=== PATIENT | female | born 1930 | race Caucasian/White ===

== ENCOUNTER 2020-05-09 09:58 | Inpatient (IN) | payer MEDICARE, OTHER ==
[~2020-05-09] VITALS: Ht 152.4 cm; Wt 51.3 kg
[2020-05-09 10:34] LABS: BASOPHILS % (AUTO) 0.8 % (0.0-2.0); EOSINOPHILS # (AUTO) 0.2 K/uL (0.0-0.7); EOSINOPHILS % (AUTO) 3.4 % (0.0-7.0); HEMATOCRIT 41.8 % (31.2-41.9); LYMPHOCYTES # (AUTO) 1.3 K/uL (20.0-40.0); LYMPHOCYTES % (AUTO) 24.5 % (20.5-51.5); MEAN CORPUSCULAR HGB CONC 33 g/dL (32.3-35.6); MONOCYTES # (AUTO) 0.6 K/uL (2.0-10.0); MONOCYTES % (AUTO) 10.5 % (0.0-11.0); NEUTROPHILS # (AUTO) 3.3 K/uL (1.8-8.9); NEUTROPHILS % (AUTO) 60.8 % (38.5-71.5); PLATELET COUNT (AUTO) 190 K/uL (179-408); RED BLOOD CELL COUNT(AUTO) 4.98 MIL/uL (3.63-4.92); WHITE BLOOD COUNT (AUTO) 5.4 K/uL (3.8-11.8)
[2020-05-09 10:47] LABS: BILIRUBIN,DIRECT 0.2 mg/dL (0.0-0.2); POTASSIUM 3.5 mmol/L (3.5-5.1); TOTAL PROTEIN, SERUM 7.1 g/dL (6.4-8.2)
--- NOTE | 2020-05-09 11:39 | NUR ---
Dr. Rowe medically cleared pt. called Nisreen Tristan for psych eval. left a message.
--- NOTE | 2020-05-09 13:38 | NUR ---
destinee heath again and left a message.
--- NOTE | 2020-05-09 15:10 | NUR ---
JAMMIE AT BEDSIDE FOR PSYCH EVAL.
--- NOTE | 2020-05-09 15:50 | NUR ---
HOSPITAL SANDWICH PROVIDED PER REQUEST.
--- NOTE | 2020-05-09 16:35 | NUR ---
TRANSFERED PT TO MHU IN STABLE CNDITION. PT REMAINED CALM AND COPERATIVE THE WHOLE ER STAY.
--- NOTE | 2020-05-09 16:45 | NUR ---
GPS: Nursing Notes: Admitting Notes: Patient admitted from ER, patient is admitted on a 5150 as a gravely disabled. Patient refusing care from staff at [facility] [place][Note 2]. Patient refusing to eat, patient has history of depression and psychosis. Patient believes that the food is poison and that the staff is trying to harm her. on face to face assessment, patient denies SI/HI, patient is calm and cooperative, sitting in chair. Patient denies AH/VH. Patient appears disheveled and unkempt, depressed mood and flat affect, A/Ox1, denies not eating, stated "I am fine..", unable to formulate a viable plan for self care, needs assistance with ADL's, unable to ambulate, Dr. Vaughan and Dr. Morales were notify by charge nurse, continue to monitor for safety, continue with treatment plan.
[2020-05-09] MEDS ORDERED: BLOOD SUGAR DIAGNOSTIC 1 EACH STRIP VI ONE (17:00)
[2020-05-09] MEDS ORDERED: ZOLPIDEM 5 MG TABLET PO PRN (17:00)
[2020-05-09] MEDS ORDERED: MAGNESIUM HYDROXIDE 30 ML LIQUID UDC PO PRN (17:00)
[2020-05-09] MEDS ORDERED: ACETAMINOPHEN 325 MG TABLET PO PRN ×2 (17:00→22:30)
[2020-05-09] MEDS ORDERED: MAG HYDROX/AL HYDROX/SIMETH 30 ML LIQUID UDC PO PRN (17:00)
[2020-05-09 20:00] VITALS: BP 112/56
[2020-05-09] MEDS ORDERED: HYDR25TA86 PO (21:13)
[2020-05-09] MEDS ORDERED: DONE10TA11 PO (21:15)
[2020-05-09] MEDS ORDERED: MAGN400O6 PO (21:50)
[2020-05-09] MEDS ORDERED: ASCO500C18 PO (21:50)
[2020-05-09] MEDS ORDERED: BISA10SU61 RC (21:50)
[2020-05-09] MEDS ORDERED: ACET-2154 PO (21:50)
[2020-05-09] MEDS ORDERED: LATA2.5D2 EACHEYE (21:50)
[2020-05-09] MEDS ORDERED: CALC-883 PO (21:50)
[2020-05-09] MEDS ORDERED: DOCU-141 PO (21:50)
[2020-05-09] MEDS ORDERED: CRAN450C PO (21:50)
[2020-05-09] MEDS ORDERED: MEMA10TA PO (21:50)
[2020-05-09] MEDS ORDERED: ATOR10TA PO (21:50)
[2020-05-09] MEDS ORDERED: MULT-213 PO (21:50)
[2020-05-09] MEDS ORDERED: AMLO5TAB4 PO (21:50)
[2020-05-09] MEDS ORDERED: NA P133E RC (21:50)
[2020-05-09] MEDS ORDERED: FLEET ENEMA 133 ML BOTTLE RC PRN (22:30)
[2020-05-09] MEDS ORDERED: MAGNESIUM HYDROXIDE 30 ML LIQUID UDC PO SCH (22:30)
[2020-05-09] MEDS ORDERED: BISACODYL 10 MG SUPP.RECT RC SCH (22:30)
[2020-05-10 07:03] LABS: BILIRUBIN,TOTAL 0.9 mg/dL (0.2-1.0); POTASSIUM 3.5 mmol/L (3.5-5.1); TOTAL PROTEIN, SERUM 6.7 g/dL (6.4-8.2)
[2020-05-10 07:37] VITALS: BP 146/75
[2020-05-10] MEDS: MEMANTINE HCL 10 MG TABLET PO SCH ×2 (09:00→17:00)
[2020-05-10] MEDS ORDERED: Medication Not On Formulary EA (Cranberry Fruit Concentrate (Cranberry) 450 MG) PO SCH (09:00)
[2020-05-10] MEDS: ASCORBIC ACID 500 MG TABLET PO SCH (09:00)
[2020-05-10] MEDS: hydrALAZINE HCL 25 MG TABLET PO SCH (09:00)
[2020-05-10] MEDS: CALCIUM CARB/VITAMIN D 500MG-200UNITS TABLET PO SCH (09:00)
[2020-05-10] MEDS: AMLODIPINE 5 MG TABLET PO SCH (09:00)
[2020-05-10] MEDS: MULTIVIT, IRON, MIN NO. 8, FA TABLET PO SCH (09:00)
[2020-05-10] MEDS: DOCUSATE SODIUM 100 MG CAPSULE PO SCH (09:00)
[2020-05-10] MEDS: OLANZAPINE 2.5 MG TABLET PO SCH ×2 (09:30→17:00)
--- NOTE | 2020-05-10 11:12 | NUR ---
FAMILIA Initial Discharge Plan: Patient resides at a nursing skilled facility [address] [address] ([phone]) and will return when she is ready for discharge. FAMILIA spoke with Fatimah preparation center coordinator at the facility who confirmed patient is accepted back when stable. FAMILIA will continue to work with patient and MD to ensure a safe and proper discharge plan.
--- NOTE | 2020-05-10 11:12 | NUR ---
FAMILIA Facility Contact: FAMILIA spoke with Fatimah home health care coordinator at the [address] [address] ([phone]) who confirmed patient is accepted back when stable.
--- NOTE | 2020-05-10 13:15 | NUR ---
Firearms Report: Field Software Engineer completed and submitted a [employer] firearms report for 5150 grave disability certification. A copy of report has been placed in patient chart.
--- NOTE | 2020-05-10 14:24 | NUR ---
GPS: Nursing Notes: Non-compliance with Medication: Patient is awake and responding to her name, refusing to eat and refusing medications, believes that we are poison her, smiling and stating "Yes, I took my medications.... Ye, I ate my food...", but in reality, patient is refusing to take her medications and refusing to eat, paranoid behavior, depressed mood and flat affect, refusing to participate in therapeutic groups, resistant with nursing care, unable to formulate a viable plan for self care, continue with treatment plan.
[2020-05-10 15:07] VITALS: BP 141/71
[2020-05-10] MEDS: METFORMIN HCL 500 MG TABLET PO SCH (17:42)
[2020-05-10 20:05] VITALS: BP 140/72
[2020-05-10] MEDS: DONEPEZIL 10 MG TABLET PO SCH (20:30)
[2020-05-10] MEDS: ATORVASTATIN 10 MG TABLET PO SCH (20:30)
[2020-05-10] MEDS: LATANOPROST OPHT DROP 2.5 ML BOTTLE EACHEYE SCH (20:30)
[2020-05-10] MEDS: MIRTAZAPINE 15 MG TABLET PO SCH (20:32)
--- NOTE | 2020-05-10 21:10 | NUR ---
Received patient in their room lying in bed. AAOx1 - 2. Patient denied pain and discomfort. Compliant with evening medications. Responsive to stimuli. Unable to hold a meaningful conversation. Safety measures in place, Q15 min checks ongoing.
--- NOTE | 2020-05-11 06:17 | NUR ---
Patient slept well. Needs were attended to. Total sleep 8.30 hours
[2020-05-11 07:30] VITALS: BP 119/55
[2020-05-11] MEDS: hydrALAZINE HCL 25 MG TABLET PO SCH (08:43)
[2020-05-11] MEDS: DOCUSATE SODIUM 100 MG CAPSULE PO SCH (08:43)
[2020-05-11] MEDS: AMLODIPINE 5 MG TABLET PO SCH (08:43)
[2020-05-11] MEDS: CALCIUM CARB/VITAMIN D 500MG-200UNITS TABLET PO SCH (08:43)
[2020-05-11] MEDS: ASCORBIC ACID 500 MG TABLET PO SCH (08:43)
[2020-05-11] MEDS: MEMANTINE HCL 10 MG TABLET PO SCH ×2 (08:43→18:04)
[2020-05-11] MEDS: METFORMIN HCL 500 MG TABLET PO SCH ×2 (08:46→18:04)
[2020-05-11] MEDS: OLANZAPINE 2.5 MG TABLET PO SCH ×2 (08:46→18:04)
[2020-05-11] MEDS: MULTIVIT, IRON, MIN NO. 8, FA TABLET PO SCH (08:46)
[2020-05-11 16:00] VITALS: BP 98/55
--- NOTE | 2020-05-11 17:00 | NUR ---
PATIENT ARRIVED ON THE FLOOR A GEROPSYCH OVERFLOW FROM MHU. CONTINUED WITH 1:1 SITTER WITH 5150 ENDING AT 1600 TOMORROW.
--- NOTE | 2020-05-11 19:30 | NUR ---
RECEIVED PT IN NO ACUTE DISTRESS. PT AWAKE, ALERT ,AND ORIENTEDX2. PT CAN MAKE HER NEEDS KNOWN. PT COMPLAINING AND DOESN'T WANT A SITTER. EXPLAINED TO HER ITS A HOSPITAL POLICY TO HAVE A SITTER WITH HER.
[2020-05-11] MEDS: MIRTAZAPINE 15 MG TABLET PO SCH (20:24)
[2020-05-11] MEDS: DONEPEZIL 10 MG TABLET PO SCH (20:24)
[2020-05-11] MEDS: ATORVASTATIN 10 MG TABLET PO SCH (20:25)
[2020-05-11 20:33] VITALS: BP 123/61
--- NOTE | 2020-05-11 20:33 | NUR ---
Pt offered Milk of magnesia. She refused the medication. She said she's not constipated.
[2020-05-11] MEDS: LATANOPROST OPHT DROP 2.5 ML BOTTLE EACHEYE SCH (21:29)
--- NOTE | 2020-05-12 06:26 | NUR ---
PT SLEPT 8 HOURS AND 45 MINUTES. SITTER AT BEDSIDE FOR SAFETY. PRESCRIBED MEDICATION GIVEN AND PT TOLERATED IT WELL. SAFETY AND COMFORT PROVIDED. WILL ENDORSE TO INCOMING NURSE FOR CONTINUITY OF CARE.
[2020-05-12 07:12] VITALS: BP 122/58
--- NOTE | 2020-05-12 07:45 | NUR ---
Patient in bed, awake and calm. No signs of distress noted. No SOB. No complain of pain or discomfort. No SI/HI noted. remains on 1:1 sitter for safety. kept clean and comfortable. Will continue to monitor.
[2020-05-12] MEDS: METFORMIN HCL 500 MG TABLET PO SCH ×2 (07:46→17:22)
[2020-05-12] MEDS: CALCIUM CARB/VITAMIN D 500MG-200UNITS TABLET PO SCH (08:03)
[2020-05-12] MEDS: MULTIVIT, IRON, MIN NO. 8, FA TABLET PO SCH (08:03)
[2020-05-12] MEDS: MEMANTINE HCL 10 MG TABLET PO SCH ×2 (08:03→16:55)
[2020-05-12] MEDS: OLANZAPINE 2.5 MG TABLET PO SCH ×2 (08:03→16:55)
[2020-05-12] MEDS: ASCORBIC ACID 500 MG TABLET PO SCH (08:03)
[2020-05-12] MEDS: hydrALAZINE HCL 25 MG TABLET PO SCH (08:03)
[2020-05-12] MEDS: DOCUSATE SODIUM 100 MG CAPSULE PO SCH (08:03)
[2020-05-12] MEDS: AMLODIPINE 5 MG TABLET PO SCH (08:04)
[2020-05-12 15:16] VITALS: BP 105/58
--- NOTE | 2020-05-12 18:09 | NUR ---
Patient in bed, No signs of distress noted. No SOB. No complain of Pain or discomfort. remains on 1:1 sitter for safety. No SI/HI noted. compliant with medications and treatment. kept clean and comfortable. Will endorse to Oncoming Nurse.
--- NOTE | 2020-05-12 19:30 | NUR ---
Awake, alert, able to make needs known. Sitter 1:1 at bedside. Snack given per request, eating good. No problem presented. Safety measures and fall prevention maintained. Continue plan of care.
[2020-05-12 19:42] VITALS: BP 121/63
[2020-05-12] MEDS: ATORVASTATIN 10 MG TABLET PO SCH (21:00)
[2020-05-12] MEDS: DONEPEZIL 10 MG TABLET PO SCH (21:00)
[2020-05-12] MEDS: MIRTAZAPINE 15 MG TABLET PO SCH (21:00)
[2020-05-12] MEDS: LATANOPROST OPHT DROP 2.5 ML BOTTLE EACHEYE SCH (21:01)
--- NOTE | 2020-05-13 06:22 | NUR ---
Shift End Report: Slept well for 8.5 hours. Remain with 1:1 sitter at bedside. No fall/injury. No agitation. No suicidal ideation. Cooperative with care. All needs attended and met. Continue current plan of care.VS stable.
--- NOTE | 2020-05-13 07:00 | NUR ---
Received patient in their room lying in bed. AAOx1 - 2. Patient denied pain and discomfort. Responsive to stimuli. Safety measures in place, Q15 min checks ongoing.sitter at bed side
[2020-05-13 07:30] VITALS: BP 145/62
[2020-05-13] MEDS: MULTIVIT, IRON, MIN NO. 8, FA TABLET PO SCH (08:00)
[2020-05-13] MEDS: METFORMIN HCL 500 MG TABLET PO SCH ×2 (08:00→17:12)
[2020-05-13] MEDS: DOCUSATE SODIUM 100 MG CAPSULE PO SCH (08:00)
[2020-05-13] MEDS: ASCORBIC ACID 500 MG TABLET PO SCH (08:00)
[2020-05-13] MEDS: hydrALAZINE HCL 25 MG TABLET PO SCH (08:00)
[2020-05-13] MEDS: OLANZAPINE 2.5 MG TABLET PO SCH (08:00)
[2020-05-13] MEDS: MEMANTINE HCL 10 MG TABLET PO SCH ×2 (08:00→16:01)
[2020-05-13] MEDS: CALCIUM CARB/VITAMIN D 500MG-200UNITS TABLET PO SCH (08:00)
[2020-05-13] MEDS: AMLODIPINE 5 MG TABLET PO SCH (08:00)
[2020-05-13] MEDS: MEGESTROL ACETATE 20 MG TABLET PO SCH ×2 (09:00→16:00)
[2020-05-13 15:21] VITALS: BP 123/60
[2020-05-13] MEDS: OLANZAPINE 5 MG TABLET PO SCH (16:01)
--- NOTE | 2020-05-13 16:14 | NUR ---
pt refused to take her medication made aware
[2020-05-13] MEDS: GLUCERNA SHAKE VANILLA 237 ML CAN PO SCH (17:21)
[2020-05-13 19:59] VITALS: BP 110/68
[2020-05-13] MEDS: DONEPEZIL 10 MG TABLET PO SCH (20:41)
[2020-05-13] MEDS: ATORVASTATIN 10 MG TABLET PO SCH (20:41)
[2020-05-13] MEDS: MIRTAZAPINE 15 MG TABLET PO SCH (20:41)
[2020-05-13] MEDS: LATANOPROST OPHT DROP 2.5 ML BOTTLE EACHEYE SCH (20:41)
--- NOTE | 2020-05-14 06:45 | NUR ---
Patient slept well about 6.5 hrs.Remain calm. no s/s of distress.1:1 sitter at bedside.All needs anticipated and met accordingly.Will endorse to incoming shift.
[2020-05-14] MEDS: METFORMIN HCL 500 MG TABLET PO SCH ×2 (08:00→11:22)
[2020-05-14 08:02] VITALS: BP 160/90
[2020-05-14] MEDS: GLUCERNA SHAKE VANILLA 237 ML CAN PO SCH ×3 (09:00→17:00)
--- NOTE | 2020-05-14 09:15 | NUR ---
Gps/Sorter Upholstery Parts- Received from 3rd floor ,as MHU overflow. Patient was well informed, Confused, she claimed she does not belong ih Psych anand, she's here for knee pain and someone made a mistake per patient. Tried to reorient patient to her surroundings, informed the reason why she's here . Kept up in her missy-chair, routine meds. reoffered, was selctive of her medications, ,complaining, too many meds. to take.Stayed in her group therapy, Patient was able to drink her milk, jello, pudding.
[2020-05-14] MEDS: DOCUSATE SODIUM 100 MG CAPSULE PO SCH (11:20)
[2020-05-14] MEDS: ASCORBIC ACID 500 MG TABLET PO SCH (11:21)
[2020-05-14] MEDS: MULTIVIT, IRON, MIN NO. 8, FA TABLET PO SCH (11:21)
[2020-05-14] MEDS: AMLODIPINE 5 MG TABLET PO SCH (11:22)
[2020-05-14] MEDS: OLANZAPINE 5 MG TABLET PO SCH ×2 (11:23→16:44)
[2020-05-14] MEDS: MEGESTROL ACETATE 20 MG TABLET PO SCH ×2 (11:37→16:44)
[2020-05-14] MEDS: CALCIUM CARB/VITAMIN D 500MG-200UNITS TABLET PO SCH (11:38)
[2020-05-14] MEDS: MEMANTINE HCL 10 MG TABLET PO SCH ×2 (11:38→16:44)
[2020-05-14] MEDS: hydrALAZINE HCL 25 MG TABLET PO SCH (11:39)
[2020-05-14 16:00] VITALS: BP 99/55
--- NOTE | 2020-05-14 18:00 | NUR ---
Gps/Carcass Washer- Stayed up on her missy-chair, encouraged to eat meal, fluids offered, encouraged, patient likes to drink milk. Prompted to take her routine medications. Interacts when engaged. Suspicious about her medications kept asking what are they for , reviewed with patient .
[2020-05-14] MEDS: DONEPEZIL 10 MG TABLET PO SCH (20:38)
[2020-05-14] MEDS: ATORVASTATIN 10 MG TABLET PO SCH (20:38)
[2020-05-14] MEDS: MIRTAZAPINE 15 MG TABLET PO SCH (20:38)
[2020-05-14] MEDS: LATANOPROST OPHT DROP 2.5 ML BOTTLE EACHEYE SCH (20:39)
[2020-05-14 21:11] VITALS: BP 147/66
--- NOTE | 2020-05-15 05:33 | NUR ---
GPS: Patient Remain cooperative with care. refused HS po meds. no s/s of distress this morning.incontinent of b+b. good lois care provided. kept in missy chair near the nursing station for safety. continue plan of care.
--- NOTE | 2020-05-15 06:24 | NUR ---
slept only 2.15 hrs only through the night. refused all HS MEDS.
[2020-05-15 07:30] VITALS: BP 122/60
[2020-05-15] MEDS: DOCUSATE SODIUM 100 MG CAPSULE PO SCH (09:00)
[2020-05-15] MEDS: OLANZAPINE 5 MG TABLET PO SCH (09:15)
[2020-05-15] MEDS: METFORMIN HCL 500 MG TABLET PO SCH ×2 (09:15→17:50)
[2020-05-15] MEDS: MEMANTINE HCL 10 MG TABLET PO SCH ×2 (09:16→17:47)
[2020-05-15] MEDS: CALCIUM CARB/VITAMIN D 500MG-200UNITS TABLET PO SCH (09:16)
[2020-05-15] MEDS: hydrALAZINE HCL 25 MG TABLET PO SCH (09:16)
[2020-05-15] MEDS: MEGESTROL ACETATE 20 MG TABLET PO SCH ×2 (09:16→17:46)
[2020-05-15] MEDS: AMLODIPINE 5 MG TABLET PO SCH (09:16)
[2020-05-15] MEDS: MULTIVIT, IRON, MIN NO. 8, FA TABLET PO SCH (09:16)
[2020-05-15] MEDS: ASCORBIC ACID 500 MG TABLET PO SCH (09:16)
[2020-05-15] MEDS: GLUCERNA SHAKE VANILLA 237 ML CAN PO SCH ×3 (09:17→17:00)
--- NOTE | 2020-05-15 10:25 | NUR ---
Gps/Retail Mortgage Banker- Bed alarm went off, found patient sitting on her chair, patient apparently got oob by herself. .Safety reviewed emphasized. Put patient to her missy-chair by the Nurses station for safety. Interacting well with staff in [facility], noted paranoia , confused, disoriented , speech clear gets incoherent.
--- NOTE | 2020-05-15 12:50 | NUR ---
Gps/Automation Lead-Patient remains with paranoia, delusions , that staff are putting something in her foods, refusing to eat lunch , stated" cant you see all those things crawling in this tray , poison". Pudding offered, openned infront of her. , suspicious. bottled water offered.
--- NOTE | 2020-05-15 15:13 | NUR ---
Gps/Patch Setter- Remains up on her missy-chair by the Nurses station , noted patient patient mumbling , responding to internal stimuli, asked who is she talking to, denies talking to anyone. Bottled water offered, fluids encouraged, remains suspicious of staff putting poison in her foods/drinks.
[2020-05-15 16:14] VITALS: BP 141/75
[2020-05-15] MEDS: OLANZAPINE 2.5 MG TABLET PO SCH (17:46)
[2020-05-15 20:44] VITALS: BP 147/77
[2020-05-15] MEDS: LATANOPROST OPHT DROP 2.5 ML BOTTLE EACHEYE SCH (21:00)
[2020-05-15] MEDS: ATORVASTATIN 10 MG TABLET PO SCH (21:00)
[2020-05-15] MEDS: DONEPEZIL 10 MG TABLET PO SCH (21:00)
[2020-05-16] MEDS ORDERED: ZOLPIDEM 5 MG TABLET PO PRN (08:30)
[2020-05-16 09:08] VITALS: BP 107/62
[2020-05-16] MEDS: MULTIVIT, IRON, MIN NO. 8, FA TABLET PO SCH (09:32)
[2020-05-16] MEDS: CALCIUM CARB/VITAMIN D 500MG-200UNITS TABLET PO SCH (09:32)
[2020-05-16] MEDS: MEMANTINE HCL 10 MG TABLET PO SCH ×2 (09:32→17:26)
[2020-05-16] MEDS: MEGESTROL ACETATE 20 MG TABLET PO SCH ×2 (09:32→17:26)
[2020-05-16] MEDS: OLANZAPINE 2.5 MG TABLET PO SCH ×2 (09:32→17:26)
[2020-05-16] MEDS: DOCUSATE SODIUM 100 MG CAPSULE PO SCH (09:32)
[2020-05-16] MEDS: AMLODIPINE 5 MG TABLET PO SCH (09:32)
[2020-05-16] MEDS: METFORMIN HCL 500 MG TABLET PO SCH ×2 (09:32→17:27)
[2020-05-16] MEDS: ASCORBIC ACID 500 MG TABLET PO SCH (09:32)
[2020-05-16] MEDS: hydrALAZINE HCL 25 MG TABLET PO SCH (09:32)
[2020-05-16] MEDS: GLUCERNA SHAKE VANILLA 237 ML CAN PO SCH ×3 (09:33→17:28)
--- NOTE | 2020-05-16 09:57 | NUR ---
PC Hearing: Patient had her probable cause hearing today and it was upheld for grave disability.
[2020-05-16 17:30] VITALS: BP 123/66
[2020-05-16 20:18] VITALS: BP 105/62
[2020-05-16] MEDS: DONEPEZIL 10 MG TABLET PO SCH (20:38)
[2020-05-16] MEDS: ATORVASTATIN 10 MG TABLET PO SCH (20:39)
[2020-05-16] MEDS ORDERED: TRAZODONE 50 MG TABLET PO SCH (21:00)
[2020-05-16] MEDS: LATANOPROST OPHT DROP 2.5 ML BOTTLE EACHEYE SCH (22:38)
[2020-05-17] MEDS: LORAZEPAM 0.5 MG TABLET PO PRN (01:19)
--- NOTE | 2020-05-17 04:42 | NUR ---
GPS/rn-Pt was received in bed, awake and verbally responding but confuse and disorganized thought processing. Pt was noted responding to internal stimuli and laughing and talking. Pt unable to verbalized SI/HI. Pt was restless and crawling out of bed without economic research assistant. Pt was transfer to missy-chair and kept in front of nursing station but was still restless. Ativan PRN was given with some effect but pt still unable sleep at this time. Will monitor and safety precaution in place.
[2020-05-17 07:35] VITALS: BP_SYST 100; BP_SYST 146; BP_DIAS 28; BP_DIAS 60
[2020-05-17] MEDS: OLANZAPINE 2.5 MG TABLET PO SCH (08:16)
[2020-05-17] MEDS: METFORMIN HCL 500 MG TABLET PO SCH ×2 (08:18→17:27)
[2020-05-17] MEDS: MEGESTROL ACETATE 20 MG TABLET PO SCH ×2 (08:28→17:30)
[2020-05-17] MEDS: MEMANTINE HCL 10 MG TABLET PO SCH ×2 (08:28→17:28)
[2020-05-17] MEDS: MULTIVIT, IRON, MIN NO. 8, FA TABLET PO SCH (09:00)
[2020-05-17] MEDS: hydrALAZINE HCL 25 MG TABLET PO SCH (09:00)
[2020-05-17] MEDS: AMLODIPINE 5 MG TABLET PO SCH (09:00)
[2020-05-17] MEDS: DOCUSATE SODIUM 100 MG CAPSULE PO SCH (09:00)
[2020-05-17] MEDS: GLUCERNA SHAKE VANILLA 237 ML CAN PO SCH ×3 (09:00→17:30)
[2020-05-17] MEDS: CALCIUM CARB/VITAMIN D 500MG-200UNITS TABLET PO SCH (09:00)
[2020-05-17] MEDS: ASCORBIC ACID 500 MG TABLET PO SCH (09:00)
[2020-05-17] MEDS ORDERED: OLANZAPINE 2.5 MG TABLET PO ONE (09:15)
--- NOTE | 2020-05-17 10:48 | NUR ---
SW Individual Intervention: SW met with patient to provide brief individual counseling. Patient presented confused and disorganized, mumbling and responding to internal stimuli. SW attempted to ask patient questions and reorient patient to reality, however patient is unable to engage in an appropriate and meaningful conversation due to her disorganized thought process.
[2020-05-17 15:53] VITALS: BP 99/58
[2020-05-17] MEDS: OLANZAPINE 5 MG TABLET PO SCH (17:30)
--- NOTE | 2020-05-17 18:12 | NUR ---
Patient has been medication compliant today with much encouragement and patience when administrating the medication. Mastercam Programmer noticed patient responding to internal stimuli throughout the day. Patient appears to be confused and needs frequent reorientation. Continuing to monitor for safety and compliance. No acute distress at this time.
[2020-05-17] MEDS: DONEPEZIL 10 MG TABLET PO SCH (21:02)
[2020-05-17] MEDS: ATORVASTATIN 10 MG TABLET PO SCH (21:02)
[2020-05-17] MEDS: TRAZODONE 50 MG TABLET PO SCH (21:02)
[2020-05-17] MEDS: LATANOPROST OPHT DROP 2.5 ML BOTTLE EACHEYE SCH (21:03)
--- NOTE | 2020-05-18 06:03 | NUR ---
GPS- Pt a/ox1, calm during shift and no excessive behavior noted. Pt cooperative with meds, no side effect noted. Slept during night and breathing even. Monitor for safety, and head count ongoing.
[2020-05-18 07:30] VITALS: BP 115/65
[2020-05-18] MEDS: METFORMIN HCL 500 MG TABLET PO SCH ×2 (08:26→18:00)
[2020-05-18] MEDS: MULTIVIT, IRON, MIN NO. 8, FA TABLET PO SCH (08:26)
[2020-05-18] MEDS: MEGESTROL ACETATE 20 MG TABLET PO SCH ×2 (08:26→17:00)
[2020-05-18] MEDS: DOCUSATE SODIUM 100 MG CAPSULE PO SCH (08:26)
[2020-05-18] MEDS: ASCORBIC ACID 500 MG TABLET PO SCH (08:26)
[2020-05-18] MEDS: CALCIUM CARB/VITAMIN D 500MG-200UNITS TABLET PO SCH (08:27)
[2020-05-18] MEDS: hydrALAZINE HCL 25 MG TABLET PO SCH (08:27)
[2020-05-18] MEDS: MEMANTINE HCL 10 MG TABLET PO SCH ×2 (08:27→17:00)
[2020-05-18] MEDS: AMLODIPINE 5 MG TABLET PO SCH (08:27)
[2020-05-18] MEDS: OLANZAPINE 5 MG TABLET PO SCH ×2 (08:30→17:00)
[2020-05-18] MEDS: GLUCERNA SHAKE VANILLA 237 ML CAN PO SCH ×3 (08:31→17:00)
[2020-05-18 16:00] VITALS: BP 101/59
[2020-05-18 20:17] VITALS: BP 106/61
[2020-05-18] MEDS: ATORVASTATIN 10 MG TABLET PO SCH (20:41)
[2020-05-18] MEDS: TRAZODONE 50 MG TABLET PO SCH (20:41)
[2020-05-18] MEDS: LATANOPROST OPHT DROP 2.5 ML BOTTLE EACHEYE SCH (20:41)
[2020-05-18] MEDS: DONEPEZIL 10 MG TABLET PO SCH (20:41)
--- NOTE | 2020-05-19 06:51 | NUR ---
PT SLEPT 2 HOURS. PT IN NO ACUTE DISTRESS. PRESCRIBED MEDICATION GIVEN AND PT TOLERATED IT WELL. PT PLEASANT WHEN APPROACHED. COOPERATIVE WITH CARE. SAFETY AND COMFORT PROVIDED. WILL ENDORSE TO INCOMING NURSE FOR CONTINUITY OF CARE.
[2020-05-19 07:54] VITALS: BP 123/51
[2020-05-19 09:42] LABS: *BILIRUBIN,URIN NEGATIVE (NEGATIVE); *BLOOD, URINE 2+ (NEGATIVE); *CLARITY,URINE CLOUDY (CLEAR); *COLOR,URINE YELLOW (YELLOW); *KETONES,URINE 1+ (NEGATIVE); LEUKOCYTE ESTERASE ,URINE 3+ (NEGATIVE); NITRITE, URINE POSITIVE (NEGATIVE); PH,URINE 5.5 (5.0-8.0); UGLUCOSE NEGATIVE (NEGATIVE)
[2020-05-19] MEDS: MEMANTINE HCL 10 MG TABLET PO SCH ×2 (09:43→16:57)
[2020-05-19] MEDS: METFORMIN HCL 500 MG TABLET PO SCH ×2 (09:43→17:00)
[2020-05-19] MEDS: OLANZAPINE 5 MG TABLET PO SCH ×2 (09:43→16:57)
[2020-05-19] MEDS: MEGESTROL ACETATE 20 MG TABLET PO SCH ×2 (09:43→16:59)
[2020-05-19] MEDS: CALCIUM CARB/VITAMIN D 500MG-200UNITS TABLET PO SCH (09:43)
[2020-05-19] MEDS: DOCUSATE SODIUM 100 MG CAPSULE PO SCH (09:44)
[2020-05-19] MEDS: ASCORBIC ACID 500 MG TABLET PO SCH (09:44)
[2020-05-19] MEDS: AMLODIPINE 5 MG TABLET PO SCH (09:44)
[2020-05-19] MEDS: MULTIVIT, IRON, MIN NO. 8, FA TABLET PO SCH (09:44)
[2020-05-19] MEDS: GLUCERNA SHAKE VANILLA 237 ML CAN PO SCH ×3 (09:57→17:01)
[2020-05-19] MEDS: hydrALAZINE HCL 25 MG TABLET PO SCH (09:57)
[2020-05-19] MEDS: CEphaleXIN 500 MG CAPSULE PO SCH ×2 (11:32→20:16)
--- NOTE | 2020-05-19 12:01 | NUR ---
Gps/Inside Wirer- Remains up in her recliner chair, attending her group therapy. Confused, verbalized she's worried about her baby got left behind in her room. Reoriented patient , informed she is in the Hosp.. Adequate fluid intake , offered and encouraged. Monitored safety .
[2020-05-19 13:51] LABS: BACTERIA,URINE MANY /HPF (NONE SEEN); SQUAMOUS EPITHELIAL CELL,UR FEW /HPF (NONE SEEN); WBC,URINE TNTC /HPF (0-3)
[2020-05-19 14:57] VITALS: BP 118/68
--- NOTE | 2020-05-19 18:04 | NUR ---
Gps/Emergency Vehicle Operations Instructor-Had been cooperative with staff, remains confused, copliant with her routine meds, minimal prompting and encouragement.
[2020-05-19 20:00] VITALS: BP 117/60
[2020-05-19] MEDS: LORAZEPAM 0.5 MG TABLET PO PRN (20:16)
[2020-05-19] MEDS: TRAZODONE 50 MG TABLET PO SCH (20:16)
[2020-05-19] MEDS: ATORVASTATIN 10 MG TABLET PO SCH (20:16)
[2020-05-19] MEDS: DONEPEZIL 10 MG TABLET PO SCH (20:16)
[2020-05-19] MEDS: LATANOPROST OPHT DROP 2.5 ML BOTTLE EACHEYE SCH (20:17)
--- NOTE | 2020-05-20 03:02 | NUR ---
Received patient in the [place] chair, awake and confused. Medication compliant with some encouragement. As the shift progressed, patient became restless and agitated. Patient was tolited and put to bed, but was yelling and confused. Trying to climb out of the bed. Again back to the chair where she calmed down for a short period of time ,then became even more restless trying to climb out of the chair. PRN medications given with no effect. Again put patient in bed. Patient continues to talk, is very confused and taking off her cloths. Patient has had zero sleep so far. Continuing to monitor for safety, attempt to reorient and observe for behavior escalation.
--- NOTE | 2020-05-20 06:08 | NUR ---
Patient talked to herself all night and slept 0 hours. Multiple attempts to encourage sleep, dark room, patient clean and dry. Frequent rounding for safety. Quiet environment provided, plus PRN medications given. Patient remains confused and responding to internal stimuli at this time.
[2020-05-20 07:30] VITALS: BP 139/63
[2020-05-20] MEDS: CEphaleXIN 500 MG CAPSULE PO SCH (08:37)
[2020-05-20] MEDS: OLANZAPINE 5 MG TABLET PO SCH (08:37)
[2020-05-20] MEDS: ASCORBIC ACID 500 MG TABLET PO SCH (08:37)
[2020-05-20] MEDS: MULTIVIT, IRON, MIN NO. 8, FA TABLET PO SCH (08:38)
[2020-05-20] MEDS: AMLODIPINE 5 MG TABLET PO SCH (08:38)
[2020-05-20] MEDS: DOCUSATE SODIUM 100 MG CAPSULE PO SCH (08:39)
[2020-05-20] MEDS: CALCIUM CARB/VITAMIN D 500MG-200UNITS TABLET PO SCH (08:40)
[2020-05-20] MEDS: METFORMIN HCL 500 MG TABLET PO SCH (08:40)
[2020-05-20] MEDS: MEGESTROL ACETATE 20 MG TABLET PO SCH (08:41)
[2020-05-20] MEDS: MEMANTINE HCL 10 MG TABLET PO SCH (08:41)
[2020-05-20] MEDS: hydrALAZINE HCL 25 MG TABLET PO SCH (08:41)
[2020-05-20] MEDS: GLUCERNA SHAKE VANILLA 237 ML CAN PO SCH ×2 (08:42→13:11)
--- NOTE | 2020-05-20 09:28 | NUR ---
Discharge Note: Patient will be discharged to [facility], [facility] [address] [place] [address] ([phone]) via ambulance transportation at 1pm. Spoke with Fatimah disability services coordinator at the facility who states they are ready to accept the patient today. Patient will follow-up at the facility with Dr. Morales Food And Nutrition Services Supervisor and Dr. Vaughan Psychiatrist. Patient is alert and oriented times 2, denies suicidal or homicidal ideation, and is aware and agreeable with discharge plans. Patient presents with euthymic mood and congruent affect. Patient is unable to plan for self-care at this time, however, is willing to accept care provided at the facility. Patient has no family or supportive contacts to notify of discharge plan.
[2020-05-20 15:00] VITALS: BP 136/71
--- NOTE | 2020-05-20 15:16 | NUR ---
Patient discharged to [facility], picked up by [facility] transportation, transferred via gurney. Patient remains alert, oriented x 1, confused, on room air, not in any form of distress. Patient is calm and cooperative, denies SI and HI and no hallucination. Kept patient clean and comfortable. She denies any pain or discomfort. Report given to Annabella BROCK from [facility].
== END 2020-05-20 14:00 | DRG 885 ==
LOC: ER 09:58 → GPS 15:52 → GPSOV3 05-11 17:02 → GPS 05-14 08:47
PROVIDERS: ADMIT Psychiatry & Neurology Psychiatry; ATTEND Family Medicine
DX: F33.3 Major depressive disorder, recurrent, severe with psychotic symptoms (principal); N17.0 Acute kidney failure with tubular necrosis; N18.9 Chronic kidney disease, unspecified; F03.91 Unspecified dementia, unspecified severity, with behavioral disturbance; F23 Brief psychotic disorder; N39.0 Urinary tract infection, site not specified; R62.7 Adult failure to thrive; Z68.21 Body mass index [BMI] 21.0-21.9, adult; E78.5 Hyperlipidemia, unspecified; H40.9 Unspecified glaucoma; I12.9 Hypertensive chronic kidney disease with stage 1 through stage 4 chronic kidney disease, or unspecified chronic kidney disease; Z73.6 Limitation of activities due to disability; B96.1 Klebsiella pneumoniae [K. pneumoniae] as the cause of diseases classified elsewhere; E11.22 Type 2 diabetes mellitus with diabetic chronic kidney disease
CPT/HCPCS: 36415; 71045; 83690; 85025; 87077; 87086; 93005; A4663